=== PATIENT | female | born 1955 | race Caucasian/White ===

== ENCOUNTER → 2017-12-19 | Outpatient (CLI) | payer MEDICARE ==
[~2017-12-19] VITALS: Ht 165.1 cm; Wt 83.9 kg
[~2017-12-19] MED LIST: BUDE6HFA IH; CATHETER FLUSH 10 ML SYR IV PRN; CYCL10TA45 PO; IBUP800T26 PO; LEVO125T6 PO; LISI10TA2 PO; REGADENOSON 0.4 MG/5 ML SYR (LEXISCAN) IV ONE
[2017-12-19 08:58] VITALS: BP 123/71
[2017-12-19 09:03] VITALS: BP 148/57
--- NOTE | 2017-12-21 12:51 | STRESS TEST ---
DATE OF SERVICE: 12/19/2017 RESTING AND POST REGADENOSON TECHNETIUM-99M TETROFOSMIN SPECT CT IMAGING ORDERING PHYSICIAN: Carlene Davis APRN OTHER PHYSICIAN: Dr. Alonso. CLINICAL DIAGNOSES: Chest pain, hypertension. Baseline images were carried out after injection of 10.68 mCi of technetium-99m Tetrofosmin. This was followed by 0.4 mg regadenoson and 30.3 mCi of technetium-99m Tetrofosmin for stress imaging. The electrocardiogram showed sinus rhythm with nonspecific ST abnormality at baseline. Following regadenoson infusion, the patient did experience profound bradycardia, which was very brief and resolved without intervention. She noted some shortness of breath following regadenoson infusion, which results shortly afterwards. Overall, she tolerated the procedure well. Review of images at rest and following stress does not indicate any significant perfusion defects consistent with significant myocardial ischemia or infarction. Gated images show normal global left ventricular systolic function with normal regional wall motion. Left ventricular ejection fraction is calculated to be 77%. Left ventricular end diastolic volume is 53 mL. TID is absent (1.04). CONCLUSIONS: 1. No evidence of any significant myocardial ischemia or infarction on this study. 2. Normal regional wall motion. 3. Normal global left ventricular systolic function with a calculated ejection fraction of 77%. 4. Normal left ventricular cavity size. Job ID: [id number] DocumentID: [id number] Dictated Date: 12/21/2017 09:47:25 Sales Planner Date: 12/21/2017 12:50:53 Dictated By: SD ALONSO MD, MA, FACP, FACC, MTDD
== END ==
LOC: CARD 07:04
PROVIDERS: ATTEND Nurse Practitioner Family
DX: R07.9 Chest pain, unspecified (principal); I10 Essential (primary) hypertension; E78.5 Hyperlipidemia, unspecified; R06.09 Other forms of dyspnea
CPT/HCPCS: 78452; 93017

== ENCOUNTER → 2018-01-04 | Outpatient (CLI) | payer MEDICARE ==
[~2018-01-04] MED LIST changes: -CATHETER FLUSH 10 ML SYR IV PRN; -REGADENOSON 0.4 MG/5 ML SYR (LEXISCAN) IV ONE
== END ==
LOC: CARD 09:33
PROVIDERS: ATTEND Nurse Practitioner Family
DX: R07.9 Chest pain, unspecified (principal); I10 Essential (primary) hypertension; E78.5 Hyperlipidemia, unspecified; R06.09 Other forms of dyspnea
CPT/HCPCS: 93306

== ENCOUNTER → 2019-12-12 | Outpatient (CLI) | payer MEDICARE ==
--- NOTE | 2019-12-12 17:50 | Diagnostic Imaging Report ---
PROCEDURE: CT thoracic and lumbar spine without contrast. TECHNIQUE: Multiple contiguous axial images were obtained through the thoracic and lumbar spine without the use of intravenous contrast. Sagittal and coronal reformations were then performed. All CT scans use one or more of the following dose optimizing techniques: automated exposure control, MA and/or KvP adjustment based on a patient size and exam type, or iterative reconstruction. INDICATION: Thoracic and lumbar pain. History of failed fusion. Pain radiates down both legs. CORRELATION STUDY: None. FINDINGS: There is marked rightward curvature of the thoracic spine, apex at approximately T10 level with less severe leftward compensatory curvature of the lumbar spine. Slight straightening of the normal thoracic kyphosis. Lumbar lordosis is also slightly flattened. In the thoracic spine, there is bony fusion through the majority of the thoracic spine. The facet fusion starts at the T4 level and extends through the T11 level. There appears to be less severe bony fusion at the T11-T12 level. Definitive pseudoarthrosis however is not suggested. The thoracic vertebral body heights overall are fairly well maintained. No significant vertebral body segmentation abnormality or significant loss of height. There is no significant osseous narrowing of the thoracic spinal canal. In the lumbar spine, no high degree osseous narrowing of the spinal canal. There does appear to be degenerative disc disease at L4-L5 and L5-S1 levels with various degrees of disc and osteophyte formation, resulting in bilateral foraminal and spinal canal narrowing. Foraminal narrowing is greatest on the right. IMPRESSION: 1. Rather pronounced severity of rightward curvature of the lower thoracic spine with compensatory leftward curvature of the lumbar spine. 2. There is fusion across the facet joints through the majority of the thoracic spine essentially from approximately T4 to the T11 level. Less pronounced bony fusion across the T11-T12 facets, however definitive pseudarthrosis is not demonstrated. 3. Significant foraminal narrowing at L4-L5 and L5-S1 levels owing to disc and osteophyte formation, greatest on the right. Dictated by: Dictated on workstation # [id number]
== END ==
LOC: RAD 13:55
PROVIDERS: ATTEND Physician Assistant
DX: M48.07 Spinal stenosis, lumbosacral region (principal); M43.8X4 Other specified deforming dorsopathies, thoracic region; M43.8X6 Other specified deforming dorsopathies, lumbar region; M25.78 Osteophyte, vertebrae; Z98.1 Arthrodesis status
CPT/HCPCS: 72128; 72131

== ENCOUNTER 2020-08-06 05:32 | Outpatient (RCR) | payer MEDICARE ==
[~2020-08-06 05:32] MED LIST changes: +ASPI-1238 PO; +DICL75TA2 PO; +DIPH25CA79 PO; +FLUT9.9S NS; +GABA-490 PO; +MV-M1TAB20 PO; +OMG1KC PO; +TIZA4CAP8 PO
== END 2020-08-07 13:36 | disposition home or self-care (01) ==
LOC: PREOP 05:32
PROVIDERS: ATTEND Surgery
DX: Z01.812 Encounter for preprocedural laboratory examination (principal); Z86.010 Personal history of colon polyps; Z20.822 Contact with and (suspected) exposure to COVID-19
CPT/HCPCS: 87635

== ENCOUNTER 2020-08-10 08:40 | Day surgery (SDC) | payer MEDICARE ==
[2020-08-10] VITALS (8 sets, daily range): BP systolic 109–136; BP diastolic 65–84
[~2020-08-10] VITALS: Ht 165.1 cm; Wt 75.8 kg
[2020-08-10] MEDS ORDERED: LACTATED RINGERS 1,000 ML IV ONE (08:47)
[2020-08-10] MEDS ORDERED: LACTATED RINGERS 1,000 ML IV STA (08:49)
[2020-08-10] MEDS ORDERED: LISI1TAB29 PO (09:43)
[2020-08-10] MEDS ORDERED: LEVO125T6 PO (09:43)
[2020-08-10] MEDS ORDERED: proPOfol 200 MG/20 ML (DIPRIVAN) VIAL IV ONE (09:51)
[2020-08-10] MEDS ORDERED: MIDAZOLAM 2 MG/2 ML (VERSED) VIAL ONE (09:51)
--- NOTE | 2020-08-10 10:04 | Progress Note-Pre Operative ---
Pre-Operative Progress Note H&P Reviewed The H&P was reviewed, patient examined and no changes noted. Time Seen by Provider: 09:59 Date H&P Reviewed: Aug 10, 2020 Time H&P Reviewed: 10:00 Pre-Operative Diagnosis: Hx of colon polyps CHRISTINE VAUGHAN DO Aug 10, 2020 10:04
--- NOTE | 2020-08-10 10:29 | Endoscopy Discharge Instruct ---
Endo Procedure/Findings Findings 1.: Polyp 2.: Diverticulosis 3.: Internal Hemorrhoids Discharge Instructions - Activity: You might feel a little sleepy until tomorrow. This is due to the medicine you received to relax you. Until tomorrow, you should: NOT drive a car, operate machinery or power tools. NOT drink any alcoholic beverages. NOT make any important decisions or sign importortant papers. Do not return to work until tomorrow, unless otherwise instructed. Resume previous activities tomorrow. Diet: Start by taking liquids. If you tolerate liquids, advance to solid food. 1.: Colonscopy in 5 years Notify Physician - If you experience excessive bleeding, unusual abdominal pain, fever, or chest pain, contact your doctor immediately. CHRISTINE VAUGHAN DO Aug 10, 2020 10:29
--- NOTE | 2020-08-10 10:29 | Progress Note-Post Operative ---
Post-Operative Progess Note Surgeon (s)/Training Lead (s) Surgeon CHRISTINE VAUGHAN DO Training Lead: DEMETRA Schrader Pre-Operative Diagnosis Hx of colon polyps Post-Operative Diagnosis Polyp Diverticula Int hemorrhoids Procedure & Operative Findings Date of Procedure 08/10/20 Procedure Performed/Findings Colon with cold bx Anesthesia Type IV sedation by Anesthesia Estimated Blood Loss Estimated blood loss (mL): scant Specimens/Packing Specimens Removed desc colon polyp CHRISTINE VAUGHAN DO Aug 10, 2020 10:29
--- NOTE | 2020-08-10 11:35 | Anesthesia-General Post-Op ---
MAC Patient Condition Mental Status/LOC: Same as Preop Cardiovascular: Satisfactory Nausea/Vomiting: Absent Respiratory: Satisfactory Pain: Controlled Complications: Absent Post Op Complications Complications None Follow Up Care/Instructions Patient Instructions None needed. Anesthesiology Discharge Order Discharge Order Patient was seen after the procedure and she was doing well, no complaints, stable vital signs, no apparent adverse anesthesia problems. INDIGO AMADO DO Aug 10, 2020 11:35
--- NOTE | 2020-08-10 19:31 | OPERATIVE REPORT ---
DATE OF SERVICE: 08/10/2020 PREOPERATIVE DIAGNOSIS: History of polyps. POSTOPERATIVE DIAGNOSES: Colon polyps, diverticula, internal hemorrhoids. PROCEDURE: Colonoscopy with cold biopsy. SURGEON: Fidencio Cote DO MANAGER ORACLE: KIA Coyne. SPECIMEN: Biopsy from the descending colon polyp. BLOOD LOSS: Scant. FLUIDS: Per anesthesia. POSTOPERATIVE CONDITION: Stable. INDICATION FOR PROCEDURE: The patient is a 64-year-old female with a history of colon polyps and needed a repeat colonoscopy. FINDINGS: The patient had one small polyp in the descending colon, had some diverticula and some internal hemorrhoids. PROCEDURE NOTE: After informed consent was obtained, the patient was brought to the endoscopy suite, placed in bed in left lateral decubitus position. She was administered IV sedation by the anesthesiologist who then monitored her vitals the entire time, heart rate, blood pressure and pulse ox. I placed a scope in, pushed all the way to about 150 cm, able to get to the cecum, took a picture of appendiceal orifice, noted the ileocecal valve and then slowly withdrew the scope insufflating to look circumferentially at the anthony looking the cecum, up the ascending colon to the hepatic flexure, then down the transverse colon, splenic flexure, into the descending colon. In the descending colon, saw a small polyp, flat, elected to do a cold biopsy of this and then also saw some diverticula in the descending colon and sigmoid area, took a picture and then continued down into the rectum, retroflexed in the rectal vault, saw some minimal internal hemorrhoids, took a picture of this and then removed the scope. The patient tolerated the procedure, recovered in endoscopy suite. Job ID: [id number] DocumentID: [id number] Dictated Date: 08/10/2020 16:07:27 Supervisor Sewer System Date: 08/10/2020 19:30:52 Dictated By: FIDENCIO COTE DO
== END 2020-08-10 11:20 | disposition home or self-care (01) ==
LOC: ENDO 08:40
PROVIDERS: ATTEND Surgery
DX: D12.4 Benign neoplasm of descending colon (principal); K57.30 Diverticulosis of large intestine without perforation or abscess without bleeding; K64.8 Other hemorrhoids; I10 Essential (primary) hypertension; I25.10 Atherosclerotic heart disease of native coronary artery without angina pectoris; E03.9 Hypothyroidism, unspecified; J43.9 Emphysema, unspecified; E66.9 Obesity, unspecified; Z68.27 Body mass index [BMI] 27.0-27.9, adult; F17.210 Nicotine dependence, cigarettes, uncomplicated; Z79.51 Long term (current) use of inhaled steroids; Z79.899 Other long term (current) drug therapy; Z88.0 Allergy status to penicillin; Z88.8 Allergy status to other drugs, medicaments and biological substances; Z86.010 Personal history of colon polyps; Z80.3 Family history of malignant neoplasm of breast
CPT/HCPCS: 88305

== ENCOUNTER → 2021-01-22 | Outpatient (CLI) | payer MEDICARE ==
[~2021-01-22] MED LIST changes: +LISI1TAB29 PO
--- NOTE | 2021-01-22 10:33 | Diagnostic Imaging Report ---
Indication: 2-D and 3-D digital screening with CAD. Compared with a prior dated 12/2013. Findings: Benign calcifications in the left breast with increased in density. No adverse interval development or suspicious finding of the breast. Showed scattered fibroglandular densities. Skin, nipples and axilla normal. Impression: Benign findings on the left as described, no suspicious finding. BI-RADS Category 2 ACR BI-RADS Category 2: Benign findings. Result letter will be mailed to the patient. Note: At least 10% of breast cancer is not imaged by mammography. Dictated by: Dictated on workstation # [id number]
== END ==
LOC: RAD 09:15
PROVIDERS: ATTEND Pediatrics
DX: Z12.31 Encounter for screening mammogram for malignant neoplasm of breast (principal)
CPT/HCPCS: 77063; 77067

== ENCOUNTER 2022-08-01 05:36 | Outpatient (CLI) | payer MEDICARE ==
[~2022-08-01] VITALS: Ht 165.1 cm; Wt 66.8 kg
[~2022-08-01 05:36] MED LIST changes: -LISI1TAB29 PO; +LISI1TAB44 PO
[2022-08-02] MEDS ORDERED: GABA300C PO (08:37)
[2022-08-02] MEDS ORDERED: LEVO112T55 PO (08:37)
[2022-08-02] MEDS ORDERED: LISI5TAB20 PO (08:39)
== END 2022-08-02 08:51 | disposition home or self-care (01) ==
LOC: PREOP 05:36
PROVIDERS: ATTEND Specialist
DX: Z01.818 Encounter for other preprocedural examination (principal)

== ENCOUNTER 2022-08-05 07:48 | Day surgery (SDC) | payer MEDICARE ==
[~2022-08-05] VITALS: Wt 66.8 kg
[~2022-08-05 07:48] MED LIST changes: +GABA300C PO; +LEVO112T55 PO; +LISI5TAB20 PO
[2022-08-05 08:00] VITALS: BP 175/88
[2022-08-05] MEDS ORDERED: TIMOLOL 0.5% (CATARACTS) 0.3 ML BTL OU PRN (08:00)
[2022-08-05] MEDS ORDERED: POVIDONE (BETADINE) OPHTH SOLN 5% 30 ML OP ONE (08:00)
[2022-08-05] MEDS ORDERED: MOXIFLOXACIN OPHTH SOLN 5 MG/ML 0.3 ML SYRINGE OP ONE (08:00)
[2022-08-05] MEDS: TETRACAINE 0.5% OPHTH SOLN 4 ML BTL (SINGLE DOSE ONLY) OU PRN ×4 (08:11→08:30)
[2022-08-05] MEDS: TROPICAMIDE 1% OPH SOLN (MYDRIACYL) 15 ML BTL OP SCH ×3 (08:17→08:32)
[2022-08-05] MEDS: PHENYLEPHRINE 10% OPHTH (NEO-SYN) 5 ML BTL OU SCH ×3 (08:17→08:32)
[2022-08-05] MEDS ORDERED: MIDAZOLAM 2 MG/2 ML (VERSED) VIAL ONE (08:38)
[2022-08-05] MEDS ORDERED: GLYCOPYRROLATE 0.2 MG/ML (ROBINUL) 2 ML VIAL ONE (08:40)
--- NOTE | 2022-08-05 08:58 | Ophthalmologist Pre-Op Note ---
Pre-Operative Progress Note H&P Reviewed The H&P was reviewed, patient examined and no changes noted. Date H&P Reviewed: Aug 05, 2022 Time H&P Reviewed: 08:32 Pre-Op Dx Cataract, Left Eye ESMER BARBOZA MD Aug 05, 2022 08:58
--- NOTE | 2022-08-05 08:58 | Ophthalmology Operative Report ---
Cataract, Miotic Pupil PREOPERATIVE DIAGNOSIS: 1. Cataract Left Eye 2. Miotic Pupil POSTOPERATIVE DIAGNOSIS: 1. Cataract Left Eye 2. Miotic Pupil PROCEDURE: 1. Cataract removal and placement of posterior chamber implant, left eye 2. Pupillary expansion with malyugin ring SURGEON: Donald Barboza ANESTHESIA: Topical with sedation COMPLICATIONS: None ESTIMATED BLOOD LOSS: Minimal DESCRIPTION OF PROCEDURE: After proper informed consent was obtained, the patient, a 66 female, was taken to the Operating Room and the left eye was anesthetized with Tetracaine. The eye was then prepped and draped in the usual manner. A wire lid speculum was placed. A paracentesis was made at the left hand position. Preservative free l idocaine was injected into anterior chamber followed by viscoelastic. A clear corneal incision was made in the temporal position. The malyugin ring was injected into the anterior chamber and the pupil was dilated. A capsulorrhexis was preformed and the central nuclear and cortical material were removed. The posterior capsule was polished and Abimael 10.0 AU00T0 IOL was placed into the capsular bag. The myalgian ring was removed. The residual viscoelastic was aspirated and the balanced saline solution was injected into the anterior chamber. Moxifloxacin was injected into the anterior chamber. The wound was checked and found to be water tight. The patient tolerated the procedure well without complications. DONALD BARBOZA MD Aug 05, 2022 08:58
[2022-08-05 09:10] VITALS: BP 182/90
[2022-08-05] MEDS ORDERED: acetaZOLAMIDE ER 500 MG CAP (DIAMOX SEQUELS) PO ONE (10:15)
--- NOTE | 2022-08-05 12:23 | Anesthesia-General Post-Op ---
MAC Patient Condition Mental Status/LOC: Same as Preop Cardiovascular: Satisfactory Nausea/Vomiting: Absent Respiratory: Satisfactory Pain: Controlled Complications: Absent Post Op Complications Complications None Follow Up Care/Instructions Patient Instructions None needed. Anesthesiology Discharge Order Discharge Order Patient is doing well, no complaints, stable vital signs, no apparent adverse anesthesia problems. No complications reported per nursing. NHUNG MOLINA CRNA Aug 05, 2022 12:23
== END 2022-08-05 09:12 | disposition home or self-care (01) ==
LOC: SDC 07:48
PROVIDERS: ATTEND Specialist
DX: H25.9 Unspecified age-related cataract (principal); H57.03 Miosis; F17.290 Nicotine dependence, other tobacco product, uncomplicated
CPT/HCPCS: 66982; V2632

== ENCOUNTER 2022-08-15 05:46 | Outpatient (CLI) | payer MEDICARE | END 2022-08-15 13:49 | LOC: PREOP 05:46 | PROVIDERS: ATTEND Specialist | DX: Z01.818 Encounter for other preprocedural examination (principal); H26.9 Unspecified cataract ==

== ENCOUNTER 2022-08-19 07:04 | Day surgery (SDC) | payer MEDICARE ==
[~2022-08-19] VITALS: Ht 165.1 cm; Wt 66.8 kg
[2022-08-19] MEDS ORDERED: TIMOLOL 0.5% (CATARACTS) 0.3 ML BTL OU PRN (07:15)
[2022-08-19] MEDS ORDERED: POVIDONE (BETADINE) OPHTH SOLN 5% 30 ML OP ONE (07:15)
[2022-08-19] MEDS ORDERED: MOXIFLOXACIN OPHTH SOLN 5 MG/ML 0.3 ML SYRINGE OP ONE (07:15)
[2022-08-19] MEDS: TETRACAINE 0.5% OPHTH SOLN 4 ML BTL (SINGLE DOSE ONLY) OU PRN ×4 (07:18→07:37)
[2022-08-19 07:20] VITALS: BP 180/78
[2022-08-19] MEDS: TROPICAMIDE 1% OPH SOLN (MYDRIACYL) 15 ML BTL OP SCH ×3 (07:26→07:37)
[2022-08-19] MEDS: PHENYLEPHRINE 10% OPHTH (NEO-SYN) 5 ML BTL OU SCH ×3 (07:26→07:37)
[2022-08-19] MEDS ORDERED: MIDAZOLAM 2 MG/2 ML (VERSED) VIAL ONE (08:02)
--- NOTE | 2022-08-19 08:05 | Ophthalmologist Pre-Op Note ---
Pre-Operative Progress Note H&P Reviewed The H&P was reviewed, patient examined and no changes noted. Date H&P Reviewed: Aug 19, 2022 Time H&P Reviewed: 08:05 Pre-Op Dx Cataract, Right Eye ESMER BARBOZA MD Aug 19, 2022 08:05
--- NOTE | 2022-08-19 08:29 | Ophthalmology Operative Report ---
Cataract removal/placement IOL PREOPERATIVE DIAGNOSIS: Cataract Right Eye POSTOPERATIVE DIAGNOSIS: Cataract Right Eye PROCEDURE: Cataract removal and placement of posterior chamber implant, right eye SURGEON: Donald Barboza ANESTHESIA: Topical with sedation COMPLICATIONS: None ESTIMATED BLOOD LOSS: Minimal DESCRIPTION OF PROCEDURE: After proper informed consent was obtained, the patient, a 66 female, was taken to the Operating Room and the right eye was anesthetized with tetracaine. The right eye was then prepped and draped in the usual manner. A wire lid speculum was placed. A paracentesis was made at the left hand position. Preservative free lidocaine was injected into the anterior chamber followed by viscoelastic. A clear corneal incision was made in the temporal position. A capsulorrhexis was preformed and the central nuclear and cortical material were removed. The posterior capsule was polished and Abimael 13.0 AU00T0 IOL was placed into the capsular bag. The residual viscoelastic was aspirated and balanced saline solution was injected into the anterior chamber. Moxifloxacin was injected into the anterior chamber. The wound was checked and found to be water tight. The patient tolerated the procedure well without complications. DONALD BARBOZA MD Aug 19, 2022 08:29
[2022-08-19 08:43] VITALS: BP 188/92
[2022-08-19] MEDS ORDERED: acetaZOLAMIDE ER 500 MG CAP (DIAMOX SEQUELS) PO ONE (10:00)
--- NOTE | 2022-08-19 12:01 | Anesthesia-General Post-Op ---
MAC Patient Condition Mental Status/LOC: Same as Preop Cardiovascular: Satisfactory Nausea/Vomiting: Absent Respiratory: Satisfactory Pain: Controlled Complications: Absent Post Op Complications Complications None Follow Up Care/Instructions Patient Instructions None needed. Anesthesiology Discharge Order Discharge Order Patient is doing well, no complaints, stable vital signs, no apparent adverse anesthesia problems. No complications reported per nursing. CYNTHIA JORGE CRNA Aug 19, 2022 12:01
== END 2022-08-19 08:45 | disposition home or self-care (01) ==
LOC: SDC 07:04
PROVIDERS: ATTEND Specialist
DX: H25.9 Unspecified age-related cataract (principal); F17.200 Nicotine dependence, unspecified, uncomplicated
CPT/HCPCS: 66984; V2632

== ENCOUNTER → 2022-09-22 | Outpatient (CLI) | payer MEDICARE | LOC: CARD 09:42 | PROVIDERS: ATTEND Internal Medicine Cardiovascular Disease | DX: I08.0 Rheumatic disorders of both mitral and aortic valves (principal) | CPT/HCPCS: 93306 ==

== ENCOUNTER → 2022-10-04 | Outpatient (CLI) | payer MEDICARE ==
[~2022-10-04] VITALS: Ht 165 cm; Wt 65.0 kg
[~2022-10-04] MED LIST changes: +REGADENOSON 0.4 MG/5 ML SYR (LEXISCAN) IV ONE
[2022-10-04] MEDS: CATHETER FLUSH 10 ML SYR IVP PRN ×2 (11:14→12:46)
[2022-10-04 12:44] VITALS: BP 169/69
--- NOTE | 2022-10-06 12:24 | STRESS TEST ---
DATE OF SERVICE: 10/04/2022 RESTING AND POST REGADENOSON TECHNETIUM-99M TETROFOSMIN SPECT CT IMAGING ORDERING PHYSICIAN: Carlene Davis APRN. PRIMARY PHYSICIAN: Dr. Max Giron. CLINICAL DIAGNOSIS: Shortness of breath. Baseline images were carried out after injection of 11 mCi of technetium-99m tetrofosmin. This was followed by 0.4 mg regadenoson and 30.3 mCi of technetium-99m tetrofosmin for stress imaging. The electrocardiogram showed sinus rhythm at baseline. Following regadenoson, there was significant, but very brief bradycardia. The patient tolerated the procedure well. Review of images at rest and following stress does not indicate any significant perfusion defect consistent with myocardial ischemia or infarction. Gated images show normal global left ventricular systolic function with normal regional wall motion. Left ventricular ejection fraction is calculated to be 75%. CONCLUSIONS: 1. No evidence of any significant myocardial ischemia or infarction on this study. 2. Normal regional wall motion. 3. Normal global left ventricular systolic function with a calculated ejection fraction of 75%. Job ID: [id number] DocumentID: [id number] Dictated Date: 10/06/2022 09:52:16 Wagon Person Date: 10/06/2022 12:22:00 Dictated By: SD ALONSO MD; ALYX; FACP; FACC;
== END ==
LOC: CARD 10:59
PROVIDERS: ATTEND Nurse Practitioner Family
DX: R06.09 Other forms of dyspnea (principal)
CPT/HCPCS: 78452; 93017; A9502

== ENCOUNTER → 2023-05-09 | Outpatient (CLI) | payer MEDICARE, OTHER ==
[~2023-05-09] MED LIST changes: -GABA-490 PO; +GABA-491 PO; -REGADENOSON 0.4 MG/5 ML SYR (LEXISCAN) IV ONE
--- NOTE | 2023-05-09 14:48 | Diagnostic Imaging Report ---
INDICATION: Tobaccoism. Study is performed for abdominal aortic aneurysm screening. The proximal abdominal aorta measures 2.7 x 2.5 cm. Mid abdominal aorta is 2.9 x 2.7 cm. Distal abdominal aorta is 2.5 x 2.3 cm. The right iliac artery measures 0.9 x 1.0 cm. Left iliac artery measures 0.9 x 1.1 cm. IMPRESSION: There is some ectasia involving the mid abdominal aorta. No aneurysm is detected. Dictated by: Dictated on workstation # [id number]
== END ==
LOC: RAD 08:43
PROVIDERS: ATTEND Nurse Practitioner Family
DX: Z13.6 Encounter for screening for cardiovascular disorders (principal); Z72.0 Tobacco use
CPT/HCPCS: 76775